=== PATIENT | female | born 1955 | race Caucasian/White ===

== ENCOUNTER → 2018-01-17 | Outpatient (CLI) | payer OTHER ==
[~2018-01-17] MED LIST: DYAZIDE 75/50 PO; ESTRADIOL PO; MEDR10 PO; METO25ER PO; PRED10; PRED20 PO; SIMV40 PO; TRIHYD5075; TRIHYD5075 PO
[2018-01-17 16:11] LABS: Microalb/Creat Ratio UR, Rand Unable to Calculate mg/g (0.000-30.000); Microalbumin, Random Urine <5.000 mg/L (0.000-20.000)
== END ==
LOC: LAB SHORT 10:30 → LAB EV 10:30
PROVIDERS: Nurse Practitioner Family
DX: E11.9 Type 2 diabetes mellitus without complications (principal)
CPT/HCPCS: 82043; 82570

== ENCOUNTER → 2021-06-20 | Outpatient (CLI) | payer OTHER | END | disposition home or self-care (01) | LOC: LAB SHORT 16:43 → LAB 16:43 | DX: N39.0 Urinary tract infection, site not specified (principal) | CPT/HCPCS: 87086 ==

== ENCOUNTER → 2021-08-11 | Outpatient (CLI) | payer OTHER ==
[2021-08-11 14:12] LABS: Candida species (DNA Probe) Positive (NEGATIVE); G. vaginalis (DNA Probe) Positive (NEGATIVE); T. vaginalis (DNA Probe) Negative (NEGATIVE)
== END ==
LOC: LAB SHORT 11:46 → LAB 11:46
PROVIDERS: Family Medicine
DX: N94.10 Unspecified dyspareunia (principal)
CPT/HCPCS: 87480; 87510; 87660

== ENCOUNTER → 2021-09-23 | Outpatient (CLI) | payer MEDICARE ==
[2021-09-24 07:58] LABS: Candida species (DNA Probe) Positive (NEGATIVE); G. vaginalis (DNA Probe) Positive (NEGATIVE); T. vaginalis (DNA Probe) Negative (NEGATIVE)
== END | disposition home or self-care (01) ==
LOC: LAB SHORT 14:20
PROVIDERS: Family Medicine
DX: N89.8 Other specified noninflammatory disorders of vagina (principal)
CPT/HCPCS: 87480; 87510; 87660

== ENCOUNTER 2022-03-01 11:45 | Inpatient (IN) | payer MEDICARE ==
[~2022-03-01] VITALS: Ht 167.6 cm; Wt 66.0 kg
[2022-03-01 12:59] LABS: BASOPHILS ABSOLUTE AUTO 0.04 K/mm3 (0.00-0.23); BASOPHILS PERCENT AUTO 0 % (0-2); EOSINOPHILS ABSOLUTE AUTO 0.09 K/mm3 (0.00-0.68); EOSINOPHILS PERCENT AUTO 1 % (0-6); Hematocrit 49.5 % (33.0-51.0); Hemoglobin 17.5 g/dL (11.5-16.0); IMMATURE GRAN ABSOLUTE AUTO 0.03 K/mm3 (0.00-0.10); IMMATURE GRAN PERCENT AUTO 0 % (0-1); LYMPHOCYTES ABSOLUTE AUTO 1.15 K/mm3 (0.84-5.20); LYMPHOCYTES PERCENT AUTO 12 % (21-46); MONOCYTES ABSOLUTE AUTO 0.42 K/mm3 (0.16-1.47); MONOCYTES PERCENT AUTO 4 % (4-13); Mean Corpuscular HGB 28.9 pg (26.0-34.0); Mean Corpuscular HGB Conc 35.4 g/dL (31.5-36.5); Mean Corpuscular Volume 82 fL (80-100); Mean Platelet Volume 9.9 fL (9.1-12.4); NEUTROPHILS ABSOLUTE AUTO 7.77 K/mm3 (1.96-9.15); NEUTROPHILS PERCENT AUTO 82 % (41-73); Platelet Count 184 K/mm3 (150-400); RDW Coefficient Variation 11.5 % (11.7-14.2); RDW Standard Deviation 34.3 fL (35.1-46.3); Red Blood Cell Count 6.05 M/mm3 (3.80-5.20)
[2022-03-01 13:20] LABS: Albumin, Blood 4.4 g/dL (3.4-5.0); Albumin/Globulin Ratio 1.1 (0.8-1.8); Bilirubin, Total 0.6 mg/dL (0.1-1.0); Calcium, Blood 10.7 mg/dL (8.5-10.1); Creatinine, Blood 0.67 mg/dL (0.40-1.00); Globulin, Blood 3.9 g/dL (2.2-4.0); Potassium, Blood 4.8 mmol/L (3.5-5.5); Total Protein, Blood 8.3 g/dL (6.4-8.2)
[2022-03-01 13:24] LABS: International Normalized Ratio 1.04; Prothrombin Time Results 10.9 Sec (9.7-11.5)
[2022-03-01 15:34] LABS: U Amphetamine Screen Not Detected; U Barbituate Screen Not Detected; U Benzodiazapine Screen DETECTED; U Buprenorphine Screen Not Detected; U Cannabinoids Screen Not Detected; U Cocaine Screen Not Detected; U Methadone Screen Not Detected; U Methamphetamine Screen Not Detected; U Opiates Screen Not Detected; U Oxycodone Screen Not Detected; U Phencyclidine Screen Not Detected; U Propoxyphene Screen Not Detected
[2022-03-01] MEDS ORDERED: ESTRADIOL42.5 GM (16:21)
[2022-03-01] MEDS ORDERED: METFORMIN HCL500 M2 PO (16:21)
[2022-03-01] MEDS ORDERED: CYMBALTA20 M2 PO (16:22)
[2022-03-01] MEDS ORDERED: POTA CHLORIDE (16:22)
[2022-03-01] MEDS ORDERED: DYAZIDE 37.5-21 EACH (16:24)
--- NOTE | 2022-03-01 18:05 | NUR ---
PT ARRIVED TO UNIT. NEURO ASSESSED. STRENGTH NORM BILAT. PUPILS 4, SLUGGISH. REQUESTED TO BRUSH TEETH, ABLE TO DO SO INDEPENDENTLY. SPOUSE @ BEDSIDE. HYPERTENSION NOTED. PULSES NORM. A&O X2. IND. TRANSFER FROM TO BED.
[2022-03-02] MEDS ORDERED: SIMVASTATIN PO (00:55)
[2022-03-02] MEDS ORDERED: THERA-D2000 UNIT PO (01:11)
[2022-03-02] MEDS ORDERED: TRIA50 PO (01:19)
[2022-03-02 06:01] LABS: BASOPHILS ABSOLUTE AUTO 0.03 K/mm3 (0.00-0.23); BASOPHILS PERCENT AUTO 0 % (0-2); EOSINOPHILS PERCENT AUTO 1 % (0-6); Hematocrit 48.5 % (33.0-51.0); Hemoglobin 16.4 g/dL (11.5-16.0); IMMATURE GRAN ABSOLUTE AUTO 0.02 K/mm3 (0.00-0.10); IMMATURE GRAN PERCENT AUTO 0 % (0-1); LYMPHOCYTES ABSOLUTE AUTO 2.36 K/mm3 (0.84-5.20); LYMPHOCYTES PERCENT AUTO 24 % (21-46); MONOCYTES PERCENT AUTO 9 % (4-13); Mean Corpuscular HGB 29.2 pg (26.0-34.0); Mean Corpuscular HGB Conc 33.8 g/dL (31.5-36.5); Mean Platelet Volume 10.1 fL (9.1-12.4); NEUTROPHILS ABSOLUTE AUTO 6.48 K/mm3 (1.96-9.15); NEUTROPHILS PERCENT AUTO 66 % (41-73); Platelet Count 175 K/mm3 (150-400); RDW Coefficient Variation 11.6 % (11.7-14.2); RDW Standard Deviation 36.8 fL (35.1-46.3); Red Blood Cell Count 5.61 M/mm3 (3.80-5.20); White Blood Cell Count 9.89 K/mm3 (4.00-11.30)
[2022-03-02 06:15] LABS: Mean Corpuscular Volume 87 fL (80-100)
[2022-03-02 06:23] LABS: Anion Gap 8 mmol/L (6-16); Blood Urea Nitrogen 19 mg/dL (8-24); Bun/Creatinine Ratio 24.8 (12.0-20.0); CHOL/HDL RATIO 4.2; CO2, Blood 29 mmol/L (21-32); Calcium, Blood 9.9 mg/dL (8.5-10.1); Chloride, Blood 98 mmol/L (98-108); Cholesterol 229 mg/dL (50-200); Creatinine, Blood 0.77 mg/dL (0.40-1.00); Glomerular Filtration Rate 86 (60-); Glucose, Blood 97 mg/dL (70-99); HDL Cholesterol 54 mg/dL (>39); LDL/HDL RATIO 2.6; Low Density Lipoprotein Chol 140 mg/dL (0-110); Magnesium, Blood 2.1 mg/dL (1.6-2.4); Phosphorus, Blood 3.2 mg/dL (2.5-4.9); Potassium, Blood 3.1 mmol/L (3.5-5.5); Sodium, Blood 135 mmol/L (136-145); Triglycerides 175 mg/dL (30-160); Very Low Density Lipoprot Chol 35 mg/dL (6-32)
--- NOTE | 2022-03-02 07:19 | NUR ---
PT WITH NO NOTED CHANGES TO NEURO STATUS. PT A/OX4, HERRERA TO STATE WHO HER HIS AND TALK ABOUT HER LIFE. PT IS NOTED WITH SOME INTERMITENT APHASIA AND SLOW TO RESPOND AT TIMES. WHEN ASKED QUESTIONS THAT REQUIRE MORE IN DEPT REASONING PT HAS A HARD TIME ANSWERING. RIGHT ARM INTIALLY SLIGHTLY WEAKER THAN LEFT HOWEVER NOW SEEMS TO BE EQUAL. PER DR. SAHA PT ABLE TO TAKE P.O MED AND LIQUIDS IF SHE PASSES NURSE SWALLOW EVAL. SWALLOW EVAL DONE AND PT WITH NO SIGNS OF ASPIRATION. OXYGEN MONITORED AND PT SATING 95-98% BP THIS MORNING SBP 186 AND MEDICATED WITH HYDRALAZINE 5MG. PT CONTINUES TO HAVE HEADACHE THAT IS WORSE WITH LIGHT AND WITH MOVEMENT. PT AT BEDSIDE ASSISTING PT. PT REPORTS SHE TAKES METOPROLOL DAILY NOT BID- PT BROUGHT IN PILL CONTAINERS AND THAT IS ACCURATE SHE TAKES IT DAILY NOT BID. MEDICATION FREQUENCY UPDATED TO ACCURATE FREQUENCY.
[2022-03-02] MEDS ORDERED: ACET500 PO (16:51)
[2022-03-02] MEDS ORDERED: Imitrex100 MG PO (16:53)
[2022-03-02] MEDS ORDERED: METO10 PO (16:54)
--- NOTE | 2022-03-02 18:45 | NUR ---
DISCHARGE NOTE- PT WAS GIVEN VERBAL AND WRITTEN DISCHARGE INSTRUCTIONS AND ACKNOWLEDGED UNDERSTANDING OF THEM. PT IV AND TELE WERE DC'D PRIOR TO DISCHARGE, PT WAS ESCORTED OUT VIA WC BY THE AUTOMATIC OPERATOR, NO S&S OF DISTRESS AT THAT TIME.
== END 2022-03-02 17:40 | disposition home or self-care (01) | DRG 66 ==
LOC: ER 11:45 → MEDS 18:35
PROVIDERS: Emergency Medicine; Physician Assistant; ADMIT Family Medicine
DX: I63.9 Cerebral infarction, unspecified (principal); R47.01 Aphasia; G43.909 Migraine, unspecified, not intractable, without status migrainosus; I10 Essential (primary) hypertension; E11.9 Type 2 diabetes mellitus without complications; Z79.84 Long term (current) use of oral hypoglycemic drugs; Z79.899 Other long term (current) drug therapy
CPT/HCPCS: 36415; 70450; 70496; 70498; 70551; 80053; 80061; 80069; 82947; 83036; 83735; 84443; 85025; 85610; 85730; 92610; 93005; 93010; 96374-59; 96375-59; 97110; 97116; 97161; 97165; 99285-25; A9270; J0360; J1170; J1650; J1885; J2405; J7030; Q9967

== ENCOUNTER 2022-04-27 13:02 | Inpatient (IN) | payer MEDICARE ==
[~2022-04-27] VITALS: Ht 165.1 cm; Wt 66.8 kg
[~2022-04-27 13:02] MED LIST changes: -MAGNESIUM OXID500 MG PO
[2022-04-27] MEDS ORDERED: MAGNESIUM OXID500 MG PO (13:41)
[2022-04-27 17:17] LABS: Anti-Xa UFH, PHA Monitoring <0.10 IU/mL; International Normalized Ratio 1.04; Prothrombin Time Results 10.9 Sec (9.7-11.5)
[2022-04-27 17:39] LABS: Influenza A, PCR NEGATIVE (NEGATIVE); Influenza B, PCR NEGATIVE (NEGATIVE); Resp Syncytial Virus, PCR NEGATIVE (NEGATIVE); SARS-Cov-2 (COVID-19) PCR, MMC NEGATIVE (NEGATIVE)
--- NOTE | 2022-04-27 18:30 | NUR ---
ON EVENING VITALS PT SBP WAS GREATER THAN 180. CALLED DR ANTOINE AND RECIEVED AN ORDER FOR IV HYDRALIZINE 10MG Q6P FOR SBP GREATER THAN 180.
--- NOTE | 2022-04-27 18:48 | NUR ---
SHIFT SUMMARY- PT WAS A DIRECT ADMIT FROM [place], ADMITTED WITH ELEVATED TROPONINS, REPEAT TROPONINS ARE CURRENTLY TRENDING UP. DR SEE CONSULTED FROM CARDIOLOGY, HE CAME TO SEE THE PT, PLAN IS FOR PT TO GO [facility]. NPO AT MIDNIGHT, Q6 BG CHECKS. PT ON A HEPARIN DRIP AT 15U/KG/HR. ALERT, ORIENTED AND INDEPENDENT IN THE ROOM. PT ALSO ON NS WITH POTASSIUM. HEPARIN RUNNING IN PERIPHERAL ON THE RIGHT IVF RUNNING IN THE PG IN THE LEFT SO IT CAN BE USED FOR LINE DRAWS. PT HAD SOME HTN THIS EVENING SBP GREATER THAN 180, DR ANTOINE NOTIFIED, NEW ORDER FOR IV HYDRALIZINE WAS GIVEN. FOLLOW UP BP WILL BE ON NOC SHIFT. PT CURRENTLY SITTING UP IN BED, CALL LIGHT IN REACH, NO S&S OF DISTRESS NOTED. WILL CTM AND PASS ON TO NIGHT RN IN BEDSIDE REPORT.
--- NOTE | 2022-04-27 20:13 | NUR ---
CRITICAL TROPONIN: TRENDING UPWARD, NOW 574. PT CONT'S TO C/O OF NAGGING CHEST PRESSURE THAT COMES AND GOES. SHE'S AWARE TO ALERT STAFF IF PRN MEDS FEEL REQUIRED BUT SHE DENIES NEED AT THIS TIME. ALERTED OF RESULT. HE CONFIRMED SHE'S ON A HEPARIN GTT AND PROVIDED NEW ORDERS FOR NTG 0.4MG SL PRN AND MORPHINE 2MG IV Q2H PRN.
--- NOTE | 2022-04-28 01:00 | NUR ---
CRITICAL TROPONIN: TRENDING DOWNWARD, NOW 470, VENEER DRIER TAILER MADE AWARE.
--- NOTE | 2022-04-28 04:53 | NUR ---
SUMMARY: PT IS A/OX4, INDEPENDENT IN ROOM AND PLEASANT AND COOPERATIVE W/CARE. 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 PT CONT'D TO REPORT 2/10 NAGGING SUBSTERNAL/UPPER ABDO PRESSURE BUT DENIED NEEDING PRN PAIN MEDS FOR IT. PRN NTG AND IV MORPHINE WAS OBTAINED IN EVENT IT WAS NEEDED. TROPONINS TRENDED UPWARD TO 574 THIS SHIFT BUT HAVE BEGUN TRENDING DOWN AGAIN THIS AM, NOW 470. NS W/KCL INFUSED TO ALISE PG. BP HAS IMPROVED SINCE RECIEVING PRN HYDRALAZINE LATE IN DAY SHIFT. SHE'S DENIED NAUSEA AND ALL OTHER S/S CARDIAC DISTRESS. TYLENOL RECIEVED FOR RELIEF OF [place]. NO ACUTE CHANGES. VSS VSS AND AFEBRILE. WCTM AND REPORT TO DAY RN.
[2022-04-28 06:35] LABS: BASOPHILS ABSOLUTE AUTO 0.04 K/mm3 (0.00-0.23); BASOPHILS PERCENT AUTO 1 % (0-2); EOSINOPHILS ABSOLUTE AUTO 0.16 K/mm3 (0.00-0.68); EOSINOPHILS PERCENT AUTO 2 % (0-6); Hematocrit 42.4 % (33.0-51.0); Hemoglobin 14.9 g/dL (11.5-16.0); IMMATURE GRAN ABSOLUTE AUTO 0.01 K/mm3 (0.00-0.10); IMMATURE GRAN PERCENT AUTO 0 % (0-1); LYMPHOCYTES ABSOLUTE AUTO 2.12 K/mm3 (0.84-5.20); LYMPHOCYTES PERCENT AUTO 29 % (21-46); MONOCYTES ABSOLUTE AUTO 0.69 K/mm3 (0.16-1.47); MONOCYTES PERCENT AUTO 9 % (4-13); Mean Corpuscular HGB 29.2 pg (26.0-34.0); Mean Corpuscular HGB Conc 35.1 g/dL (31.5-36.5); Mean Corpuscular Volume 83 fL (80-100); Mean Platelet Volume 10.2 fL (9.1-12.4); NEUTROPHILS ABSOLUTE AUTO 4.32 K/mm3 (1.96-9.15); NEUTROPHILS PERCENT AUTO 59 % (41-73); Platelet Count 164 K/mm3 (150-400); RDW Coefficient Variation 11.9 % (11.7-14.2); RDW Standard Deviation 36.1 fL (35.1-46.3); White Blood Cell Count 7.34 K/mm3 (4.00-11.30)
[2022-04-28 06:50] LABS: Albumin, Blood 3.8 g/dL (3.4-5.0); Albumin/Globulin Ratio 1.3 (0.8-1.8); Bilirubin, Total 0.7 mg/dL (0.1-1.0); Calcium, Blood 9.1 mg/dL (8.5-10.1); Globulin, Blood 2.9 g/dL (2.2-4.0); Potassium, Blood 3.2 mmol/L (3.5-5.5); Total Protein, Blood 6.7 g/dL (6.4-8.2)
[2022-04-28 07:06] LABS: Creatinine, Blood 0.78 mg/dL (0.40-1.00)
[2022-04-28 07:07] LABS: Bun/Creatinine Ratio 20.5 (12.0-20.0)
--- NOTE | 2022-04-28 10:18 | NUR ---
PT TO ROVING TELLER. REPORT CALLED TO U 6 RN.
--- NOTE | 2022-04-28 11:40 | NUR ---
ASSUMED CARE PT ARRIVED FROM [facility] AT 1100 AFTER ANGIO. NO STENTS WERE PLACED, PT EXPECTED FOR COBRA TRANSFER TO [facility] FOR BYPASS PROCEDURE. PT HAD RT RADIAL ACCESS, SITE PRESENTS WITH NO BLEEDING, HEMATOMA, OR BRUISING. RADIAL PULSES PRESENT ABOVE AND BELOW THE SITE. CAP REFILL WNL. PT EDUCATED ABOUT POST PROCEDURE PRECAUTIONS AND NEED TO PROTECT THE SITE FROM POTENTIAL INJURY. TR BAND IN PLACE OVER SITE WITH 11CC OF AIR, PROTECTIVE ARM BOARD IN PLACE. LYNDA JENKINS
--- NOTE | 2022-04-28 12:18 | NUR ---
TRANSFER NOTE PT BEING TRANSPORTED TO [facility] FOR CONTINUED PRGRESSION OF CARE. GAVE REPORT TO TRACEY Lynch ABOUT PT'S CONDITION AND ANSWERED ALL QUESTIONS REGARDING TRANSFER OF CARE. TR BAND AND ARM BOARD IN PLACE UPON PT'S EXIT. NO BLEEDING, HEMATOMA, OR BRUISING NOTED. PULSES PRESENT ABOVE AND BELOW THE SITE, CAP REFILL WNL. NADN, VSS
== END 2022-04-28 12:11 | disposition short-term general hospital (02) | DRG 282 ==
LOC: MEDS 13:02 → PCU 04-28 11:06
PROVIDERS: Family Medicine; ADMIT Family Medicine
PROC: B2111ZZ Fluoroscopy of Multiple Coronary Arteries using Low Osmolar Contrast (ICD-10-PCS; principal; 2022-04-28)
DX: I21.4 Non-ST elevation (NSTEMI) myocardial infarction (principal); E11.9 Type 2 diabetes mellitus without complications; I10 Essential (primary) hypertension; E78.00 Pure hypercholesterolemia, unspecified; Z20.822 Contact with and (suspected) exposure to COVID-19; I25.10 Atherosclerotic heart disease of native coronary artery without angina pectoris; G43.909 Migraine, unspecified, not intractable, without status migrainosus; I48.91 Unspecified atrial fibrillation; Z98.890 Other specified postprocedural states; Z79.84 Long term (current) use of oral hypoglycemic drugs; Z90.6 Acquired absence of other parts of urinary tract; Z86.73 Personal history of transient ischemic attack (TIA), and cerebral infarction without residual deficits; Z90.710 Acquired absence of both cervix and uterus; Z79.899 Other long term (current) drug therapy
CPT/HCPCS: 0241U; 76937; 80053; 82947; 84484; 85025; 85520; 85610; 93005; 93010; 93454; 99152; 99153; A9270; C1769; C1887; C1894; C8929; J0360; J1644; J2250; J3010; J3480; J7030; J7050; Q9967

== ENCOUNTER → 2022-04-27 | Outpatient (CLI) | payer MEDICARE ==
[~2022-04-27] MED LIST changes: +ACET500 PO; +CYMBALTA20 M2 PO; +DYAZIDE 37.5-21 EACH; +ESTRADIOL42.5 GM; +Imitrex100 MG PO; +MAGNESIUM OXID500 MG PO; +METFORMIN HCL500 M2 PO; +METO10 PO; +POTA CHLORIDE; +SIMVASTATIN PO; +THERA-D2000 UNIT PO; +TRIA50 PO
[2022-04-27 11:56] LABS: BASOPHILS ABSOLUTE AUTO 0.03 K/mm3 (0.00-0.23); BASOPHILS PERCENT AUTO 0 % (0-2); EOSINOPHILS ABSOLUTE AUTO 0.02 K/mm3 (0.00-0.68); EOSINOPHILS PERCENT AUTO 0 % (0-6); Hematocrit 45.3 % (33.0-51.0); Hemoglobin 16.3 g/dL (11.5-16.0); IMMATURE GRAN ABSOLUTE AUTO 0.03 K/mm3 (0.00-0.10); IMMATURE GRAN PERCENT AUTO 0 % (0-1); LYMPHOCYTES ABSOLUTE AUTO 0.97 K/mm3 (0.84-5.20); LYMPHOCYTES PERCENT AUTO 10 % (21-46); MONOCYTES ABSOLUTE AUTO 0.47 K/mm3 (0.16-1.47); MONOCYTES PERCENT AUTO 5 % (4-13); Mean Corpuscular HGB 29.6 pg (26.0-34.0); Mean Corpuscular Volume 82 fL (80-100); Mean Platelet Volume 10.1 fL (9.1-12.4); NEUTROPHILS ABSOLUTE AUTO 8.08 K/mm3 (1.96-9.15); NEUTROPHILS PERCENT AUTO 84 % (41-73); Platelet Count 201 K/mm3 (150-400); RDW Coefficient Variation 11.9 % (11.7-14.2); RDW Standard Deviation 35.6 fL (35.1-46.3)
[2022-04-27 12:12] LABS: Albumin, Blood 4.4 g/dL (3.4-5.0); Albumin/Globulin Ratio 1.4 (0.8-1.8); Bilirubin, Total 0.7 mg/dL (0.1-1.0); Bun/Creatinine Ratio 25.3 (12.0-20.0); Calcium, Blood 10.4 mg/dL (8.5-10.1); Creatinine, Blood 0.83 mg/dL (0.40-1.00); Globulin, Blood 3.2 g/dL (2.2-4.0); Potassium, Blood 3.3 mmol/L (3.5-5.5); Total Protein, Blood 7.6 g/dL (6.4-8.2)
== END | disposition home or self-care (01) ==
LOC: LAB SHORT 11:47
PROVIDERS: Physician Assistant
DX: R07.9 Chest pain, unspecified (principal)
CPT/HCPCS: 80053; 83690; 84484; 85025

== ENCOUNTER → 2024-11-22 | Outpatient (CLI) | payer MEDICARE ==
[~2024-11-22] MED LIST changes: +MAGNESIUM OXID500 MG PO
== END ==
LOC: LAB 10:25 → LAB SHORT 10:25
DX: E11.9 Type 2 diabetes mellitus without complications (principal)
CPT/HCPCS: 82043